=== PATIENT | female | born 1930 | race Asian ===

== ENCOUNTER 2018-11-17 13:54 | Observation (INO) | payer OTHER, MEDICAID ==
[~2018-11-17] VITALS: Ht 154.9 cm; Wt 65.3 kg
--- NOTE | 2018-11-17 13:59 | NUR ---
1357-- PT BIBA BLS TO ER BED 8.
[2018-11-17 14:03] VITALS: BP 136/89
--- NOTE | 2018-11-17 14:20 | NUR ---
BIB AMBULANCE FROM [facility] W C/O FEVER AND VOMITING X5 DAYS. CURRENT TEMP 99.5 TEMPORAL. PT IS A & O X1. DENIES DIARRHEA; SKIN IS PINK/WARM/DRY; AAOX1 AND UNABLE TO AMBULATE; PT DENIES ANY FEVER, CP, SOB, OR COUGH AT THIS TIME; PATIENT IS NOT ABLE TO STATE PAIN OF 0/10 AT THIS TIME; VSS; PATIENT POSITIONED FOR COMFORT; HOB ELEVATED; BEDRAILS UP X2; BED DOWN. ER MD MADE AWARE OF PT STATUS.
[2018-11-17] MEDS ORDERED: NACL 0.9% 1,000 ML IV ONE (14:25)
--- NOTE | 2018-11-17 14:35 | NUR ---
RT AT BEDSIDE FOR INTERVENTION.
[2018-11-17] MEDS ORDERED: DOCU-299 PO (14:59)
[2018-11-17] MEDS ORDERED: CLOP75TA55 PO (14:59)
[2018-11-17] MEDS ORDERED: LANTUS SC (14:59)
[2018-11-17] MEDS ORDERED: LISI2.5T12 PO (14:59)
[2018-11-17] MEDS ORDERED: GLIP5TAB13 PO (14:59)
[2018-11-17] MEDS ORDERED: METO25TA14 PO (14:59)
[2018-11-17] MEDS ORDERED: ATOR20TA PO (14:59)
[2018-11-17] MEDS ORDERED: ASPI-1718 PO (14:59)
[2018-11-17] MEDS ORDERED: MEMA10TA PO (14:59)
[2018-11-17] MEDS ORDERED: DONE10TA37 PO (14:59)
[2018-11-17] MEDS ORDERED: FURO-570 PO (14:59)
[2018-11-17] MEDS ORDERED: LEVO500T98 PO (14:59)
[2018-11-17] MEDS ORDERED: POTA10TE30 PO (14:59)
[2018-11-17] MEDS ORDERED: LACT-2 (14:59)
[2018-11-17 15:00] LABS: EOSINOPHILS % (AUTO) 0.3 % (0.0-4.0); HEMATOCRIT 32.2 % (36-48); HEMOGLOBIN 10.8 g/dL (12.0-16.0); LYMPHOCYTES # (AUTO) 0.5 K/uL (2.5-16.5); MEAN CORPUSCULAR HEMOGLOBIN 31 pg (27-31); MEAN CORPUSCULAR HGB CONC 34 g/dL (33-37); MEAN CORPUSCULAR VOLUME 93.3 fL (80-94); MONOCYTES % (AUTO) 7.9 % (1.7-9.3); NEUTROPHILS # (AUTO) 11.6 K/uL (1.8-7.7); NEUTROPHILS % (AUTO) 87.8 % (42.2-75.2); PLATELET COUNT (AUTO) 223 K/uL (140-450); RED BLOOD CELL COUNT(AUTO) 3.45 MIL/uL (4.20-5.40); RED CELL DISTRIBUTION WIDTH 13.8 % (11.6-13.7); WHITE BLOOD COUNT (AUTO) 13.3 K/uL (4.8-10.8)
--- NOTE | 2018-11-17 15:04 | NUR ---
PT TAKEN TO CT VIA ER BED
--- NOTE | 2018-11-17 15:13 | NUR ---
PT RETURNED FROM CT
--- NOTE | 2018-11-17 15:20 | NUR ---
URINE WAS COLLECTED VIA URINE CATHERTER. URINE OUTPUT WAS 300 ML.
[2018-11-17 15:26] LABS: ANION GAP 13.4 (8-16); CARBON DIOXIDE 28.7 mmol/L (21-32); CHLORIDE 95 mmol/L (98-107); CREATININE 1.5 mg/dL (0.6-1.3); GLUCOSE 319 mg/dL (74-106); POTASSIUM 4.1 mmol/L (3.5-5.1); SODIUM SERUM 133 mmol/L (136-145); UREA NITROGEN, BLOOD 41 mg/dL (7-18)
[2018-11-17 15:31] LABS: PROTHROMBIN TIME 11.4 secs (10.8-13.4)
[2018-11-17 15:32] LABS: ALBUMIN 2.3 g/dL (3.4-5.0); ASPARTATE AMINOTRANSFERASE 37 U/L (15-37); TOTAL BILIRUBIN 0.4 mg/dL (0.0-1.0)
[2018-11-17 15:43] LABS: APPEARANCE,URINE SL CLOUDY (CLEAR); BILIRUBIN,URINE NEGATIVE (NEGATIVE); BLOOD, URINE 3+ (NEGATIVE); COLOR,URINE YELLOW (YELLOW); LEUKOCYTE ESTERASE ,URINE 2+ (NEGATIVE); NITRITE, URINE POSITIVE (NEGATIVE); UGLUCOSE 2+ (NEGATIVE)
[2018-11-17 16:01] LABS: WBC,URINE TOO MANY TO COUNT /HPF (0-5)
[2018-11-17] MEDS ORDERED: cefTRIAXone 1,000 MG VIAL ONE (16:22)
--- NOTE | 2018-11-17 18:58 | NUR ---
Patient will be admitted to [facility]. Will go to room 108A. Belongings list completed. Report to LENORA CHIANG.
[2018-11-17] MEDS ORDERED: ALBUTEROL 0.083% 2.5 MG/3 ML NEBU INH PRN (19:45)
[2018-11-17] MEDS ORDERED: DOCUSATE SODIUM 250 MG GELCAP PO PRN (19:45)
[2018-11-17] MEDS ORDERED: ZOLPIDEM 5 MG TAB PO PRN (19:45)
[2018-11-17] MEDS ORDERED: MORPHINE SULFATE 2 MG/ML SYR IVP PRN (19:45)
[2018-11-17] MEDS ORDERED: ACETAMINOPHEN 325 MG TAB PO PRN (19:45)
[2018-11-17] MEDS ORDERED: LORazepam 2 MG/ML VIAL IVP PRN (19:45)
[2018-11-17] MEDS ORDERED: guaiFENesin DM 200/20 MG-10 ML 10 ML UDC PO PRN (19:45)
[2018-11-17] MEDS ORDERED: BISACODYL 10 MG SUPP RC PRN (19:45)
[2018-11-17] MEDS ORDERED: ONDANSETRON 4 MG/2 ML VIAL IVP PRN (19:45)
[2018-11-17] MEDS ORDERED: MAG SULF 2000 MG/WATER PREMIX 50 ML IV PRN (19:45)
[2018-11-17] MEDS ORDERED: MAGNESIUM OXIDE 400 MG TAB PO PRN (19:45)
[2018-11-17] MEDS ORDERED: HYDROcodone/APAP 5/325 MG 1 TAB TAB PO PRN ×2 (19:45)
[2018-11-17] MEDS ORDERED: cloNIDine 0.1 MG TAB PO PRN (19:45)
[2018-11-17] MEDS ORDERED: SODIUM PHOSPHATE 118 ML ENEM RC PRN (19:45)
[2018-11-17] MEDS ORDERED: IPRATROPIUM 0.02% 0.5 MG/2.5 ML NEBU INH PRN (19:45)
[2018-11-17] MEDS ORDERED: POTASSIUM CHLORIDE 10 MEQ TABER PO PRN (19:45)
[2018-11-17] MEDS ORDERED: diphenhydrAMINE 50 MG/ML VIAL IVP PRN (19:45)
[2018-11-17] MEDS ORDERED: ACETAMINOPHEN 650 MG SUPP RC PRN (19:45)
[2018-11-17] MEDS ORDERED: POTASSIUM CHLORIDE 40 MEQ, LIDOCAINE 1% 25 MG in NACL 0.9% 250 ML IV PRN (19:45)
[2018-11-17] MEDS ORDERED: ALUMINUM HYD/MAG/SIMETHICONE 30 ML UDC PO PRN (19:45)
[2018-11-17] MEDS ORDERED: DEXTROSE 50% 50 ML SYR IVP PRN (19:45)
--- NOTE | 2018-11-17 19:55 | NUR ---
REPORT RECEIVED FROM ED NURSE AT BEDSIDE. PT IN STABLE CONDITION. AAOX3. INTRODUCED SELF TO PT. BOARD UPDATED. NO COMPLAINTS OF PAIN. NO SOB. AFEBRILE. PT IS AMBULATORY WITH ASSIST. PT SPEAKS TURKISH. IV SITE L AC 20G RUNNING NS@75ML/HR PATENT AND INTACT. SKIN WARM, DRY, AND INTACT WITH NO OPEN WOUNDS. BED LOCKED IN LOW POSITION. CALL BROWN WITHIN REACH. SAFETY PRECAUTION IN PLACE. ALL NEEDS MET AT THIS TIME. Addendum: 11/18/18 at 0046 by Moises Ward RN PT CAME IN@[id number] NOT 1955. Addendum: 11/18/18 at 0317 by Moises Ward RN PT IS ON OBSERVATION. MRSA NARES SENT TO LAB.
[2018-11-17] MEDS ORDERED: INSULIN LANTUS 100 UNITS/ML 10 ML VIAL SUBQ SCH (21:00)
[2018-11-17] MEDS: MEMANTINE 10 MG TAB PO SCH (21:41)
--- NOTE | 2018-11-17 21:41 | NUR ---
COLACE AND NAMENDA GIVEN PO. BS 383. 10 UNITS OF HUMALOG GIVEN. 10 UNITS OF LANTUS GIVEN SUBQ. PT TOLERATED WELL.
[2018-11-17] MEDS: DOCUSATE SODIUM 100 MG GELCAP PO SCH (21:42)
[2018-11-17] MEDS: BLOOD GLUCOSE MONITORING 1 DEV DEV FS SCH (21:45)
[2018-11-17] MEDS: INSULIN LISPRO SLIDING SCALE 100 UNITS/ML VIAL SUBQ PRN (21:49)
[2018-11-17] MEDS: NACL 0.9% 1,000 ML IV SCH (21:55)
--- NOTE | 2018-11-17 21:55 | NUR ---
1L NORMAL SALINE HUNG@75ML/HR.
[2018-11-18] VITALS: BP 117/52
--- NOTE | 2018-11-18 00:10 | NUR ---
PT SLEEPING COMFORTABLY IN BED. NO S/S OF DISTRESS NOTED. RESPIRATIONS EVEN, UNLABORED, AND WNL. WILL CONTINUE TO MONITOR.
--- NOTE | 2018-11-18 02:00 | NUR ---
PT SLEEPING COMFORTABLY IN BED. NO S/S OF DISTRESS NOTED. NO COMPLAINTS OF PAIN. NO SOB. AFEBRILE. WILL CONTINUE TO MONITOR.
--- NOTE | 2018-11-18 04:15 | NUR ---
PT SLEEPING COMFORTABLY IN BED. NO S/S OF DISTRESS NOTED. NO COMPLAINTS OF PAIN. NO SOB. AFEBRILE. WILL CONTINUE TO MONITOR.
[2018-11-18] MEDS: INSULIN LISPRO SLIDING SCALE 100 UNITS/ML VIAL SUBQ PRN ×3 (06:08→17:02)
[2018-11-18] MEDS: BLOOD GLUCOSE MONITORING 1 DEV DEV FS SCH ×3 (06:10→16:56)
[2018-11-18] MEDS: glipiZIDE 5 MG TAB PO SCH ×2 (06:38→16:57)
--- NOTE | 2018-11-18 06:38 | NUR ---
GLUCOTROL GIVEN PO. PT TOLERATED WELL.
--- NOTE | 2018-11-18 06:40 | NUR ---
PT PULLED OUT IV. WILL REINSERT. CANNULA INTACT.
--- NOTE | 2018-11-18 07:00 | NUR ---
IV INSERTED R FA 22G. 2 ATTEMPTS.
--- NOTE | 2018-11-18 07:15 | NUR ---
RECEIVED BED SIDE REPORT FROM PIG MACHINE OPERATOR LENORA HOLMAN. PT IN STABLE CONDITION
[2018-11-18 07:24] LABS: ANION GAP 18.9 (8-16); CARBON DIOXIDE 25.1 mmol/L (21-32); CHLORIDE 97 mmol/L (98-107); CREATININE 1.2 mg/dL (0.6-1.3); GLUCOSE 324 mg/dL (74-106); SODIUM SERUM 137 mmol/L (136-145); UREA NITROGEN, BLOOD 28 mg/dL (7-18)
--- NOTE | 2018-11-18 07:26 | NUR ---
REPORT GIVEN TO AM NURSE AT BEDSIDE. PT IN STABLE CONDITION.
[2018-11-18 07:31] LABS: HEMATOCRIT 32.8 % (36-48); LYMPHOCYTES # (AUTO) 0.5 K/uL (2.5-16.5); LYMPHOCYTES % (AUTO) 3.8 % (20.5-51.1); MEAN CORPUSCULAR HEMOGLOBIN 31 pg (27-31); MEAN CORPUSCULAR HGB CONC 33 g/dL (33-37); MONOCYTES # (AUTO) 0.8 K/uL (0.8-1.0); MONOCYTES % (AUTO) 5.7 % (1.7-9.3); NEUTROPHILS # (AUTO) 12.2 K/uL (1.8-7.7); NEUTROPHILS % (AUTO) 90.5 % (42.2-75.2); PLATELET COUNT (AUTO) 261 K/uL (140-450); RED BLOOD CELL COUNT(AUTO) 3.53 MIL/uL (4.20-5.40); RED CELL DISTRIBUTION WIDTH 13.7 % (11.6-13.7); WHITE BLOOD COUNT (AUTO) 13.5 K/uL (4.8-10.8)
[2018-11-18 08:00] VITALS: BP 150/56
[2018-11-18] MEDS ORDERED: METOPROLOL 25 MG TAB PO SCH (09:00)
[2018-11-18] MEDS ORDERED: LISINOPRIL 5 MG TAB PO SCH (09:00)
[2018-11-18] MEDS ORDERED: ATORVASTATIN 20 MG TAB PO SCH (09:00)
[2018-11-18] MEDS ORDERED: CLOPIDOGREL 75 MG TAB PO SCH (09:00)
[2018-11-18] MEDS ORDERED: ASPIRIN 81 MG TAB.CHEW PO SCH (09:00)
[2018-11-18] MEDS ORDERED: DONEPEZIL 10 MG TAB PO SCH (09:00)
[2018-11-18] MEDS: MEMANTINE 10 MG TAB PO SCH (09:01)
[2018-11-18] MEDS: DOCUSATE SODIUM 100 MG GELCAP PO SCH (09:01)
[2018-11-18] MEDS: NACL 0.9% 1,000 ML IV SCH (09:05)
--- NOTE | 2018-11-18 09:14 | NUR ---
PATIENT HAS BEEN SCREENED AND CATEGORIZED HIGH NUTRITION RISK. PATIENT WILL BE SEEN WITHIN 1-2 DAYS OF ADMISSION. 11/18/18 11/19/18 TANISHA BENSON MBA, RD
--- NOTE | 2018-11-18 09:16 | NUR ---
TRIED TO GIVE AM MEDS TODAY. CRUSHED MEDS AND MIXED IN APPLESAUCE. ELEVATED HOB 90 DEGREES. PT ONLY TOOK A TABLESPOON AND STARTED COUGHING. GAVE WATER. OFFERED TO GIVE PT A MALL TEASPOON, PT REFUSED. PT ONLY TOOK SMALL AMOUNT OF APPLESAUCE WITH MEDS.
[2018-11-18] MEDS ORDERED: [UNRECOGNIZED DRUG - CODE] IV (11:40)
--- NOTE | 2018-11-18 13:33 | NUR ---
CALLED LIZETH SNELL [phone], INFORMED HER OF DC ORDER WITH IV ANTIBIOTICS, WILL FAX REQUESTED INFO AND FOLLOW UP LATER.
[2018-11-18 16:00] VITALS: BP 143/58
--- NOTE | 2018-11-18 18:10 | NUR ---
PT PICKED UP. PINK GOWN AND BLANKET ON. IV STILL IN PLACE, FLUSHES WELL. DC PAPERS GIVEN TO EMT. GAVE REPORT TO SHERRY AT [facility]. EDUCATED PT AND FAMILY ON THE IMPORTANCE OF CONTINUING ABX FOR 5 DAYS.
--- NOTE | 2018-11-24 10:12 | NUR ---
MAGNESIUM AND POTASSIUM WITHIN NORMAL LIMITS. ROCEPHIN GIVEN PRIOR TO DC TO [facility]
== END 2018-11-18 18:15 ==
LOC: MED 13:54 → MTU 18:51
PROVIDERS: ADMIT Internal Medicine Pulmonary Disease; ATTEND Internal Medicine Pulmonary Disease
DX: N39.0 Urinary tract infection, site not specified (principal); I25.10 Atherosclerotic heart disease of native coronary artery without angina pectoris; E11.9 Type 2 diabetes mellitus without complications; I10 Essential (primary) hypertension; F03.90 Unspecified dementia, unspecified severity, without behavioral disturbance, psychotic disturbance, mood disturbance, and anxiety; E86.0 Dehydration; R13.10 Dysphagia, unspecified; A41.9 Sepsis, unspecified organism; N10 Acute pyelonephritis
CPT/HCPCS: 36415; 36600; 71045; 74176; 80048; 80053; 81001; 82550; 82553; 82803; 82948; 83605; 83874; 83880; 84484; 85025; 85610; 85730; 87040; 87081; 87086; 93005; 94760; 96361; 96365; 96366; 96372; 99285; C1758; G0378; J0696; J1815; J7030; J7060; Q0092